=== PATIENT | female | born 1995 | race Two or more races ===

== ENCOUNTER 2024-04-25 05:07 | Day surgery (SDC) | payer OTHER ==
[2024-04-25] MEDS ORDERED: POVIDONE-IODINE 118 ML BOTT TOP ONE ×2 (05:42→08:13)
[2024-04-25] MEDS ORDERED: LIDOCAINE HCL 1%/EPINEPHRINE 20ML VIAL IJ ONE (07:28)
[2024-04-25] MEDS ORDERED: PROMETHAZINE HCL 50 MG/ML AMPUL IM ONE (09:00)
[2024-04-25] MEDS ORDERED: KETOROLAC TROMETHAMINE 30 MG VIAL IV ONE (09:00)
[2024-04-25] MEDS ORDERED: MORPHINE SULFATE 4 MG/ML VIAL IV PRN (09:00)
== END 2024-04-25 12:10 | disposition home or self-care (01) ==
LOC: CIR.AMB 05:07
PROVIDERS: ATTEND Obstetrics & Gynecology
DX: N87.1 Moderate cervical dysplasia (principal); N72 Inflammatory disease of cervix uteri; H52.209 Unspecified astigmatism, unspecified eye; H52.10 Myopia, unspecified eye